=== PATIENT | female | born 1990 | race American Indian/Alaskan Native ===

== ENCOUNTER 2017-10-01 09:46 | Emergency (ER) | payer MEDICAID, OTHER ==
[2017-10-01 09:52] VITALS: BP 125/71
[2017-10-01 10:17] LABS: Basophils % (Auto) 0.5 % (0.0-1.8); Hematocrit 37.7 % (30.3-42.9); Hemoglobin 11.9 gm/dl (10.1-14.3); Mean Corpuscular HGB Conc 32 % (30-34); Mean Corpuscular Hemoglobin 27 pg (28-32); Mean Corpuscular Volume 84 fl (79-97); Platelet Count 216 K/mm3 (140-440); Red Blood Count 4.49 M/mm3 (3.65-5.03); Red Cell Distribution Width 14.6 % (13.2-15.2)
--- NOTE | 2017-10-01 10:37 | Emergency Department Report ---
Chief Complaint: Vaginal Bleeding Stated Complaint: VAGINAL SPOTTING PREG Time Seen by Provider: 10/01/17 10:28 - Exam Vital Signs: Vital Signs 10/01/17 09:49 Temperature 97.3 F L Pulse Rate 86 Respiratory 20 Rate Blood Pressure 125/71 O2 Sat by Pulse 100 Oximetry MSE screening note: Focused history and physical exam performed. Due to findings the following was ordered: ED Medical Decision Making - Lab Data Result diagrams: 10/01/17 09:55 ED Disposition for MSE Condition: Stable Referrals: PRIMARY CARE, [Primary Care Provider] - 3-5 Days
[2017-10-01 10:47] LABS: Bilirubin,Urine NEG (Negative); Blood,Urine NEG (Negative); Ketones,Urine NEG (Negative); Leukocyte Esterase,Urine NEG (Negative); Nitrite,Urine NEG (Negative); Protein,Urine <15 mg/dL mg/dL (Negative); RBC,Urine < 1.0 /HPF (0.0-6.0); Urobilinogen,Urine < 2.0 mg/dL (<2.0)
[2017-10-01 11:36] LABS: Anion Gap 17 mmol/L; BUN/Creatinine Ratio 22; Blood Urea Nitrogen 11 mg/dL (7-17); Calcium 9.4 mg/dL (8.4-10.2); Carbon Dioxide 25 mmol/L (22-30); Chloride 103.5 mmol/L (98-107); Glucose 103 mg/dL (65-100); Potassium 4.8 mmol/L (3.6-5.0); Sodium 141 mmol/L (137-145)
--- NOTE | 2017-10-01 12:16 | Ultrasound Report ---
Pelvic and transvaginal sonography: History: Vaginal bleeding. Findings: Uterus measures 9.5 x 5.4 x 7.6 cm. Single intrauterine gestational sac is noted containing small yolk sac. The gestational sac diameter is 11 mm corresponding to 5 weeks and 6 days of gestation. Right ovary 2.7 x 1.6 x 2.2 cm. There is complex mass identified anterior and adjacent to the right ovary. The mass measures 2 x 1.8 x 1.8 cm. Cystic area is identified within the mass containing echogenic substance. This may represent a second yolk sac. No hemorrhage identified in the cul-de-sac. Left ovary 3.7 x 1.2 x 1.9 cm. Cyst in the left ovary measures 1.0 cm. Impression: Findings as detailed above.
--- NOTE | 2017-10-01 12:30 | Emergency Department Report ---
HPI - General Chief Complaint: Vaginal Bleeding Time Seen by Provider: 10/01/17 10:28 - HPI HPI: 27-year-old female who presents to ED complaining of vaginal spotting times one day. Patient states she recently had a positive test and has a history of ectopic and was scared when she started experiencing vaginal spotting. Patient denies fevers/chills this abdominal pain/pelvic pain/vaginal discharge/ chest pain/shortness of breath. 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 ED Past Medical Hx - Social History Smoking Status: Never Smoker Substance Use Type: None - Medications Home Medications: Home Medications Medication Instructions Recorded Confirmed Last Taken Type Ibuprofen [Motrin] 800 mg PO Q8H PRN #30 tablet 02/21/15 Unknown Rx Ondansetron [Zofran Odt] 4 mg PO Q6H #20 tab.rapdis 02/21/15 Unknown Rx traMADol [Ultram] 50 mg PO Q6HR PRN #14 tablet 02/21/15 Unknown Rx Acetaminophen [Tylenol Extra 500 mg PO Q6H #30 tablet 10/01/17 Unknown Rx Strength] 21/Iron Fu/Folic Acid 1 each PO DAILY #30 tablet 10/01/17 Unknown Rx [ Complete Caplet] ED Review of Systems ROS: Stated complaint: VAGINAL SPOTTING PREG Other details as noted in HPI Constitutional: denies: chills, fever Eyes: denies: eye pain, eye discharge, vision change ENT: denies: ear pain, throat pain Respiratory: denies: cough, shortness of breath, wheezing Cardiovascular: denies: chest pain, palpitations Endocrine: no symptoms reported Gastrointestinal: denies: abdominal pain, nausea, diarrhea Genitourinary: denies: urgency, dysuria, discharge Musculoskeletal: denies: back pain, joint swelling, arthralgia Skin: denies: rash, lesions Neurological: denies: headache, weakness, paresthesias Psychiatric: denies: anxiety, depression Hematological/Lymphatic: denies: easy bleeding, easy bruising Physical Exam - Physical Exam Vital Signs: Vital Signs 10/01/17 09:49 Temperature 97.3 F L Pulse Rate 86 Respiratory 20 Rate Blood Pressure 125/71 O2 Sat by Pulse 100 Oximetry Physical Exam: GENERAL: Alert and oriented x3, no apparent distress, Normal Gait, atraumatic. HEAD: Head is normocephalic and a-traumatic. NECK: Supple. Non edematous, No lymphadenopathy or thyromegaly. LUNGS: Symetrical with respiration, No wheezing, no rales or crackles, CTAB. HEART: S1, S2 present, regular rate and rhythm without murmur, no rubs, no gallops. Non tender to palpation ABDOMEN: No organomegaly was noted,Positive bowel sounds, soft, and non- distended. . Nontender to palpation on all Quadrants, NO CVA tenderness. BACK: Full range of motion, no spinal tenderness, nontender to palpation. PSYCHIATRIC: Mood is congruent with affect, denies suicidal or homicidal ideations. SKIN: Warm and dry, No lesions, No ulceration or induration present. ED Course Vital Signs 10/01/17 09:49 Temperature 97.3 F L Pulse Rate 86 Respiratory 20 Rate Blood Pressure 125/71 O2 Sat by Pulse 100 Oximetry ED Medical Decision Making - Lab Data Result diagrams: 10/01/17 09:55 10/01/17 09:55 - Radiology Data Radiology results: report reviewed, image reviewed Pelvic and transvaginal sonography: History: Vaginal bleeding. Findings: Uterus measures 9.5 x 5.4 x 7.6 cm. Single intrauterine gestational sac is noted containing small yolk sac. The gestational sac diameter is 11 mm corresponding to 5 weeks and 6 days of gestation. Right ovary 2.7 x 1.6 x 2.2 cm. There is complex mass identified anterior and adjacent to the right ovary. The mass measures 2 x 1.8 x 1.8 cm. Cystic area is identified within the mass containing echogenic substance. This may represent a second yolk sac. No hemorrhage identified in the cul-de-sac. Left ovary 3.7 x 1.2 x 1.9 cm. Cyst in the left ovary measures 1.0 cm. Impression: Findings as detailed above. Transcribed By: PTP Dictated By: RENO CHRISTIANSON MD Electronically Authenticated By: RENO CHRISTIANSON MD Signed Date/Time: 10/01/17 5345 - Medical Decision Making 27-year-old female presents with normal intrauterine and right ovarian cyst ED course: Urine test positive quadrant 7900 Ultrasound shows normal IUP at 5 weeks and 6 days I discussed this findings with the patient. Patient is aware that she has a right ovarian cyst from prior ultrasounds. I discussed with patient follow-up with her [employer]PER[employer]ENT patient states she has an appointment in 2 weeks. I discussed with the patient vaginal spot despite his normal symptoms of . I discussed with the patient if she has worsening symptoms to return to the ED immediately I discussed the patient into Tylenol as needed for pain and vitamins daily I also discussed the patient to increase water intake 8 glasses per day. Patient understands instructions given she is in no acute distress. Critical care attestation.: If time is entered above; I have spent that time in minutes in the direct care of this critically ill patient, excluding procedure time. ED Disposition Clinical Impression: Right ovarian cyst Normal IUP (intrauterine ) on ultrasound Qualifiers: Trimester: first trimester Qualified Code(s): Z34.91 - Encounter for supervision of normal , unspecified, first trimester Disposition: - TO HOME OR SELFCARE Is pt being admited?: No Does the pt Need Aspirin: No Condition: Stable Instructions: Morning Sickness (ED), (ED) Additional Instructions: Make sure to follow up with the primary care physician as discussed. Take all your medications as you've been prescribed. If you have any worsening symptoms or develop new symptoms please return to ED immediately. Prescriptions: Acetaminophen [Tylenol Extra Strength] 500 mg PO Q6H #30 tablet 21/Iron Fu/Folic Acid [ Complete Caplet] 1 each PO DAILY #30 tablet Referrals: CHRISTINE CARBAJAL MD [Primary Care Provider] - 3-5 Days MATTIE KEITH MD [Referring] - 3-5 Days Forms: Work/School Release Form(ED) Time of Disposition: 12:41
== END 2017-10-01 13:00 | disposition home or self-care (01) ==
LOC: ED 09:46
DX: O34.81 Maternal care for other abnormalities of pelvic organs, first trimester (principal); Z3A.01 Less than 8 weeks gestation of pregnancy
CPT/HCPCS: 36415; 76801; 76817; 80048; 81001; 84702; 85025; 86850; 86900; 86901